=== PATIENT | female | born 1975 | race Caucasian/White ===

== ENCOUNTER 2017-06-13 09:41 | Emergency (ER) | payer OTHER ==
[2017-06-13 10:01] VITALS: BP 120/69; PULSE 91; TEMP 97.9
[2017-06-13] MEDS ORDERED: IBUPROFEN 600 MG TABLET (FP) PO ONE ×2 (10:01→10:12)
--- NOTE | 2017-06-13 10:37 | PDOC ---
History of Present Illness - General Chief Complaint: Injury Stated Complaint: LEFT ANKLE INJURY Time Seen by Provider: 06/13/17 09:53 - History of Present Illness Initial Comments: 06/13/17 10:31 41-year-old female with no significant past medical history presents with left ankle pain since yesterday. Patient reports rolling her left ankle on a pine cone and everting her ankle. She reports mild pain initially but this morning her ankle was swollen and this prompted her to come to the emergency department. Patient is able to bear weight but with pain. Otherwise was in her usual state of good health, denies any fevers, chills, chest pain, shortness of breath, abdominal pain, nausea vomiting diarrhea, headaches, weakness or numbness. Past History - Past Medical History Allergies/Adverse Reactions: Allergies Allergy/AdvReac Type Severity Reaction Status Date / Time No Known Allergies Allergy Verified 06/13/17 09:42 Home Medications: Ambulatory Orders NK [No Known Home Medication] 06/13/17 COPD: No Other medical history: DENIES - Suicide/Smoking/Psychosocial Hx Smoking History: Never smoked Have you smoked in the past 12 months: No Information on smoking cessation initiated: No Hx Alcohol Use: No Drug/Substance Use Hx: No Substance Use Type: None Review of Systems - Review of Systems Comments:: 06/13/17 10:34 GENERAL/CONSTITUTIONAL: No fever or chills. No weakness. HEAD, EYES, EARS, NOSE AND THROAT: No change in vision. No ear pain or discharge. No sore throat. GASTROINTESTINAL: No nausea, vomiting, diarrhea or constipation. GENITOURINARY: No dysuria, frequency, or change in urination. CARDIOVASCULAR: No chest pain or shortness of breath. RESPIRATORY: No cough, wheezing, or hemoptysis. MUSCULOSKELETAL: +L ankle swelling and pain. No neck or back pain. SKIN: No rash NEUROLOGIC: No headache, vertigo, loss of consciousness, or change in strength/ sensation. ENDOCRINE: No increased thirst. No abnormal weight change. HEMATOLOGIC/LYMPHATIC: No anemia, easy bleeding, or history of blood clots. ALLERGIC/IMMUNOLOGIC: No hives or skin allergy. *Physical Exam - Vital Signs Last Vital Signs Temp Pulse Resp BP Pulse Ox 97.9 F 91 H 20 120/69 99 06/13/17 09:42 06/13/17 09:42 06/13/17 09:42 06/13/17 09:42 06/13/17 09:42 - Physical Exam Comments: 06/13/17 10:35 GENERAL: Awake, alert, and fully oriented, in no acute distress HEAD: No signs of trauma EYES: PERRLA, EOMI, sclera anicteric, conjunctiva clear ENT: Auricles normal inspection, hearing grossly normal, nares patent, oropharynx clear without exudates. Moist mucosa NECK: Normal ROM, supple, no lymphadenopathy, JVD, or masses LUNGS: Breath sounds equal, clear to auscultation bilaterally. No wheezes, and no crackles HEART: Regular rate and rhythm, normal S1 and S2, no murmurs, rubs or gallops ABDOMEN: Soft, nontender, normoactive bowel sounds. No guarding, no rebound. No masses EXTREMITIES: L ankle: NO bruising. Edema over lateral malleoulus. ttp over distal lateral malleoulus. 2+ DP pulse. No ttp over remainder of foot including the 5th metatarsal. No pain with ranging of ankle Normal sensation. Full strength dorsi and plantar flexion Remainder of joints: Normal range of motion, no edema. No clubbing or cyanosis. No cords, erythema, or tenderness. 2+ peripheral pulses NEUROLOGICAL: Normal speech, cranial nerves intact, negative pronator drift, 5/ 5 strength in all 4 extremities, normal sensation to light touch in all 4 extremities, normal cerebellar exam, normal gait, normal reflexes and tone SKIN: Warm, Dry, normal turgor, no rashes or lesions noted. Procedures - Splinting Splint Location: Left: Ankle (posterior splint) Pre-Proc Neuro Vasc Exam: normal Hand-Made Type: orthoglass Splint Type: Yes: Short Leg Post-Proc Neuro Vasc Exam: normal Thong Bandage: yes Complications: No Post splint xray: No ED Treatment Course - ADDITIONAL ORDERS Additional order review: Laboratory Results 06/13/17 10:10 Urine HCG, Qual Negative - RADIOLOGY Radiology Studies Ordered: Category Date Time Status ANKLE & FOOT-LEFT* [RAD] Stat Radiology 06/13/17 10:17 Ordered - Medications Given in the ED: ED Medications Discontinued Medications Generic Name Dose Route Start Last Admin Trade Name Freq PRN Reason Stop Dose Admin Ibuprofen 600 mg 06/13/17 10:01 06/13/17 10:17 Motrin - PO 06/13/17 10:02 600 mg ONCE ONE Administration Medical Decision Making - Medical Decision Making 06/13/17 10:37 Likely ankle sprain but given ttp over distal lateral malleolus will obtain imaging -ankle XR -motrin -likely DC 06/13/17 11:48 Pain well controlled with motrin. XR with acute, comminuted jimenez type A fracture of the lateral malleolus. Imaging reviewed with Dr. Allan from ortho who recommends posterior splint, crutches, and fu in [address] Jain. Posterior splint placed with no complications. No pain post splint placement, sensation in tact, able to move all toes. I discussed the physical exam findings, ancillary test results and final diagnoses with the patient. I answered all of the patient's questions. The patient was satisfied with the care received and felt comfortable with the discharge plan and treatment plan. The patient will call their primary care physician within 24 hours to arrange follow-up and will return to the Emergency Department with any new, persistent or worsening symptoms. *DC/Admit/Observation/Transfer Diagnosis at time of Disposition: Closed fracture of lateral malleolus - Discharge Dispostion Disposition: HOME Condition at time of disposition: Stable Admit: No - Patient Instructions Printed Discharge Instructions: How to Take Care of Your Cast, DI for Ankle Fracture Additional Instructions: Take ibuprofen as needed for pain every 6 hours. Use the crutches to walk until further instructed by the orthopedic doctor. Call today for an appointment with Dr. Spencer Jain from orthopedics in 1 week. [place] [address]. Return to the emergency department if you have new, worsening, or concerning symptoms. - Attestations Physician Attestion: 06/13/17 12:22 I, Dr. Maria Victoria Brewer MD, attest that this document has been prepared under my direction and personally reviewed by me in its entirety. I further attest, that it accurately reflects all work, treatment, procedures and medical decision -making performed by me.
== END 2017-06-13 12:15 | disposition home or self-care (01) ==
LOC: FER 09:41
PROC: 2W3RX1Z Immobilization of Left Lower Leg using Splint (ICD-10-PCS; principal; 2017-06-13)
DX: S82.62XA Displaced fracture of lateral malleolus of left fibula, initial encounter for closed fracture (principal); X58.XXXA Exposure to other specified factors, initial encounter; Y93.89 Activity, other specified; Y92.9 Unspecified place or not applicable
CPT/HCPCS: 73610-TC-LT; 73630-TC-LT; 84703; 99283-25